=== PATIENT | female | born 1975 | race Caucasian/White ===

== ENCOUNTER 2019-06-04 13:57 | Emergency (ER) | payer BC ==
[2019-06-04] MEDS ORDERED: Famotidine IV* 10 MG/ML 2 ML (20 mg) IV SLOW PU ONE (14:16)
[2019-06-04] MEDS ORDERED: methylPREDNISolone 125 MG* 2 ML VIAL IV ONE (14:16)
[2019-06-04] MEDS ORDERED: Ondansetron INJ* 2 MG/ML VIAL IV ONE (14:17)
[2019-06-04] MEDS ORDERED: diPHENhydraMINE IV* 50 MG/ML 1 ml VIAL (BENADRYL) SLOW PUSH ONE (15:32)
--- NOTE | 2019-06-04 15:40 | ED ---
Allergic Reaction/Systemic - HPI Summary HPI Summary: 43-year-old female presents with allergic reaction today. States she got stung by a bee last night. States that she has been having worsening redness and itchiness to her thigh in her leg. States she felt like she had a little bit of chest tightness that has resolved. States it may be anxiety. States she felt a little bit nauseous. No bowel pain. No vomiting. No sore throat. She states she is having numbness in the legs that may be due to her lymphedema. No fevers. No other symptoms. No new medications. Took some Benadryl which had some improvement. - History of Current Complaint Chief Complaint: EDAllergicReaction Time Seen by Provider: 06/04/19 14:11 Pain Intensity: 6 - Allergies/Home Medications Allergies/Adverse Reactions: Allergies Allergy/AdvReac Type Severity Reaction Status Date / Time amoxicillin [From Augmentin] Allergy Swelling Verified 06/04/19 14:01 clavulanic acid Allergy Swelling Verified 06/04/19 14:01 [From Augmentin] wasp Allergy Swelling Uncoded 06/04/19 14:02 PMH/Surg Hx/FS Hx/Imm Hx Endocrine/Hematology History: Denies: Hx Anticoagulant Therapy Respiratory History: Denies: Hx Asthma - Immunization History Date of Tetanus Vaccine: 2016 Immunizations Up to Date: Yes Infectious Disease History: No Infectious Disease History: Denies: Traveled Outside the [place] in Last 30 Days - Family History Known Family History: Positive: Non-Contributory - Social History Alcohol Use: Occasionally Substance Use Type: Reports: None Smoking Status (MU): Never Smoked Tobacco Review of Systems Negative: Fever Negative: Chest Pain Negative: Shortness Of Breath Positive: Nausea. Negative: Vomiting Positive: Rash All Other Systems Reviewed And Are Negative: Yes Physical Exam Triage Information Reviewed: Yes Vital Signs On Initial Exam: Initial Vitals Temp Pulse Resp BP Pulse Ox 98.9 F 108 18 147/90 98 06/04/19 13:59 06/04/19 13:59 06/04/19 13:59 06/04/19 13:59 06/04/19 13:59 Vital Signs Reviewed: Yes Appearance: Positive: Well-Appearing Skin: Positive: Other - urticaria to right thigh and behind left thigh Head/Face: Positive: Normal Head/Face Inspection Eyes: Positive: Normal, Conjunctiva Clear ENT: Positive: Pharynx normal Respiratory/Lung Sounds: Positive: Clear to Auscultation, Breath Sounds Present Cardiovascular: Positive: Normal, RRR Abdomen Description: Positive: Nontender, Soft Bowel Sounds: Positive: Present Musculoskeletal: Positive: Normal Neurological: Positive: Normal Psychiatric: Positive: Normal Diagnostics - Vital Signs Vital Signs Temp Pulse Resp BP Pulse Ox 06/04/19 13:59 98.9 F 108 18 147/90 98 - Laboratory Lab Statement: Any lab studies that have been ordered have been reviewed, and results considered in the medical decision making process. Re-Evaluation - Re-Evaluation First Eval Change: Improved Comment: feeling better Second Eval Re-Evaluation Time: 15:47 Change: Improved Comment: will try crackers Allergic Reaction Course/Dx - Course Course Of Treatment: 43-year-old female presents with allergic reaction today. States she got stung by a bee last night. States that she has been having worsening redness and itchiness to her thigh in her leg. States she felt like she had a little bit of chest tightness that has resolved. States it may be anxiety. States she felt a little bit nauseous. No bowel pain. No vomiting. No sore throat. She states she is having numbness in the legs that may be due to her lymphedema. No fevers. No other symptoms. No new medications. Took some Benadryl which had some improvement. On exam has urticaria rash to bilateral legs. Lungs CTA. Abdomen soft nontender. Gave Pepcid solumedrol and Zofran feeling better. Is able to tolerate crackers in the ED. We'll discharge with hydroxyzine Pepcid and prednisone. Told to follow up with primary as prednisone will likely make lymphedema worse. Told to elevate extremity. Patient understands and agrees plan. - Diagnoses Differential Diagnosis/HQI/PQRI: Positive: Anaphylaxis, Local Allergic Reaction , Urticaria Provider Diagnoses: Bee sting Discharge ED - Sign-Out/Discharge Documenting (check all that apply): Patient Departure Patient Received Moderate/Deep Sedation with Procedure: No - Discharge Plan Condition: Good Disposition: HOME Patient Education Materials: Insect Bite or Sting (ED) Referrals: No Primary Care Phys,NOPCP [Primary Care Provider] - Additional Instructions: Take Benadryl every 6 hours at night and hydroxyzine during the day every 6 hours Take Pepcid twice a day for 4 days Take steroid once a day for 4 days starting tomorrow follow up with primary Return to ED if shortness of breath, chest pain, or if develop any new or worsening symptoms - Billing Disposition and Condition Condition: GOOD Disposition: Home
[2019-06-04] MEDS ORDERED: hydrOXYzine HCL TAB* 25 MG PO ONE (16:12)
[2019-06-04 16:27] VITALS: BP 131/89
== END 2019-06-04 16:28 | disposition home or self-care (01) ==
LOC: ED 13:57
DX: T63.441A Toxic effect of venom of bees, accidental (unintentional), initial encounter (principal); Y92.9 Unspecified place or not applicable; Z79.899 Other long term (current) drug therapy; Z88.1 Allergy status to other antibiotic agents
CPT/HCPCS: 96374; 96375; 99282; A9270-GY; J2405; J2930